=== PATIENT | male | born 1940 | race Hispanic/Latino ===

== ENCOUNTER 2017-06-27 09:00 | Inpatient (IN) | payer OTHER ==
[~2017-06-27] VITALS: Ht 167.6 cm; Wt 83.8 kg
[~2017-06-27 09:00] MED LIST: ASPI-1181 PO; ATOR40TA71 PO; CARV6.25 PO; ENAL20TA PO; METF500T6 PO; METO25TA6 PO; NITR.4P TD; TAMS-1 PO; TOLT4CAP PO; [UNRECOGNIZED DRUG - OTHER] OU
[2017-06-27 09:29] LABS: BASOPHILS % (AUTO) 0.5 % (0.0-5.0); EOSINOPHILS % (AUTO) 2.8 % (0.0-8.0); HEMATOCRIT 37.7 % (42-54); LYMPHOCYTES % (AUTO) 12.9 % (21.0-51.0); MEAN CORPUSCULAR HEMOGLOBIN 30.7 pg (27.0-33.0); MEAN CORPUSCULAR HGB CONC 34.6 g/dL (32.0-36.0); MEAN CORPUSCULAR VOLUME 88.9 fL (79-99); MONOCYTES % (AUTO) 6.4 % (3.0-13.0); NEUTROPHILS % (AUTO) 77.4 % (40.0-77.0); PLATELET COUNT (AUTO) 177 K/uL (130-400); RED BLOOD CELL COUNT(AUTO) 4.24 MIL/uL (4.50-6.20); WHITE BLOOD COUNT (AUTO) 5.9 K/uL (4.8-10.8)
[2017-06-27 09:46] LABS: APPEARANCE,URINE Clear (CLEAR); BILIRUBIN,URINE Negative (NEGATIVE); COLOR,URINE Yellow (YELLOW); GLUCOSE, URINE (UA) Negative (NEGATIVE); KETONES,URINE Negative (NEGATIVE); LEUKOCYTE ESTERASE ,URINE Negative (NEGATIVE); NITRATE,URINE Negative (NEGATIVE); OCCULT BLOOD,URINE Negative (NEGATIVE); PROTEIN,URINE Negative (NEGATIVE)
[2017-06-27] MEDS ORDERED: ONDANSETRON HCL MDV 20ML 2 MG/ML VIAL ONE (10:17)
[2017-06-27] MEDS ORDERED: MORPHINE SULFATE 4 MG/1ML SYG ONE ×2 (10:17→12:26)
[2017-06-27 10:41] LABS: POTASSIUM 4.7 mmol/L (3.5-5.1)
[2017-06-27 10:47] LABS: ALBUMIN 3.3 g/dL (3.5-5.0); BILIRUBIN,TOTAL 0.8 mg/dL (0.2-1.0); TOTAL PROTEIN, SERUM 6.7 g/dL (6.0-8.3)
[2017-06-27] MEDS ORDERED: IOPAMIDOL-370 75 ML VIAL IV ONE (10:53)
[2017-06-27] MEDS ORDERED: METRONIDAZOLE 500MG/100ML BAG 100 ML ONE (12:26)
[2017-06-27] MEDS ORDERED: LEVOFLOXACIN 750 MG/D5W 150 ML 150 ML ONE (14:13)
[2017-06-27 20:00] VITALS: BP 131/57
[2017-06-28] VITALS (8 sets, daily range): BP systolic 124–159; BP diastolic 59–84
[2017-06-28] MEDS: SODIUM CHLORIDE 0.9% 1000ML 1,000 ML IV SCH ×2 (00:20→10:37)
[2017-06-28] MEDS ORDERED: GLUCAGON 1MG KIT 1 MG ML IM PRN (00:30)
[2017-06-28] MEDS ORDERED: HYDRALAZINE HCL 20 MG/ML VIAL IV PRN (00:30)
[2017-06-28] MEDS ORDERED: POTASSIUM CHLORIDE 20 MEQ ERTAB PO PRN (00:30)
[2017-06-28] MEDS ORDERED: POTASSIUM CHLORIDE 20MEQ/100ML 100 ML IV PRN (00:30)
[2017-06-28] MEDS ORDERED: LIDOCAINE HCL-MPF 1% 2ML VIAL IVP PRN (00:30)
[2017-06-28] MEDS ORDERED: DEXTROSE 50%-WATER 50 ML DISP.SYRIN IV PRN (00:30)
[2017-06-28] MEDS ORDERED: POTASSIUM CHLORIDE 10% ELIXIR 20 MEQ/15 ML UDCUP PO PRN (00:30)
[2017-06-28] MEDS ORDERED: ACETAMINOPHEN 325 MG TAB PO PRN ×2 (02:45)
[2017-06-28] MEDS ORDERED: MORPHINE SULFATE 2 MG/ML 1ML SYG IVP PRN (02:45)
[2017-06-28] MEDS ORDERED: CLONIDINE HCL 0.1 MG TABLET PO PRN (02:45)
[2017-06-28] MEDS ORDERED: ONDANSETRON HCL MDV 20ML 2 MG/ML VIAL IVP PRN (02:45)
[2017-06-28 05:39] LABS: BASOPHILS % (AUTO) 0.2 % (0.0-5.0); EOSINOPHILS % (AUTO) 1.1 % (0.0-8.0); HEMATOCRIT 34.4 % (42-54); LYMPHOCYTES % (AUTO) 12.7 % (21.0-51.0); MEAN CORPUSCULAR HEMOGLOBIN 31.8 pg (27.0-33.0); MEAN CORPUSCULAR HGB CONC 35.6 g/dL (32.0-36.0); MEAN CORPUSCULAR VOLUME 89.4 fL (79-99); MONOCYTES % (AUTO) 6.2 % (3.0-13.0); NEUTROPHILS % (AUTO) 79.8 % (40.0-77.0); PLATELET COUNT (AUTO) 156 K/uL (130-400); RED BLOOD CELL COUNT(AUTO) 3.85 MIL/uL (4.50-6.20); RED CELL DISTRIBUTION WIDTH 13.9 % (11.0-15.5); WHITE BLOOD COUNT (AUTO) 5.1 K/uL (4.8-10.8)
[2017-06-28 05:57] LABS: ALBUMIN 2.9 g/dL (3.5-5.0); BILIRUBIN,TOTAL 0.7 mg/dL (0.2-1.0); CREATININE 0.8 mg/dL (0.5-1.5); POTASSIUM 4.2 mmol/L (3.5-5.1); TOTAL PROTEIN, SERUM 6.1 g/dL (6.0-8.3)
[2017-06-28] MEDS: INSULIN HUMULIN R 100 UNIT/ML 3ML SQ SCH ×3 (05:58→21:00)
[2017-06-28] MEDS: METRONIDAZOLE 500MG/100ML BAG 100 ML IV SCH ×3 (05:58→20:33)
[2017-06-28] MEDS ORDERED: PANTOPRAZOLE 40 MG/VIAL IVP SCH ×2 (09:00→10:00)
[2017-06-28] MEDS ORDERED: LEVOFLOXACIN 500 MG/D5W 100 ML 100 ML IV SCH (14:00)
[2017-06-28] MEDS ORDERED: FAMO40TA7 PO (20:44)
[2017-06-28] MEDS ORDERED: OMEPRAZOL PO (20:44)
[2017-06-28] MEDS ORDERED: FAMOTIDINE/PF 20 MG/2 ML VIAL IV SCH (21:00)
[2017-06-29] MEDS: SODIUM CHLORIDE 0.9% 1000ML 1,000 ML IV SCH (04:16)
[2017-06-29] MEDS: METRONIDAZOLE 500MG/100ML BAG 100 ML IV SCH ×2 (04:16→11:21)
[2017-06-29 04:41] VITALS: BP 123/66
[2017-06-29 05:55] LABS: BASOPHILS % (AUTO) 0.3 % (0.0-5.0); EOSINOPHILS % (AUTO) 2.8 % (0.0-8.0); HEMATOCRIT 33.6 % (42-54); LYMPHOCYTES % (AUTO) 21.3 % (21.0-51.0); MEAN CORPUSCULAR HEMOGLOBIN 30.9 pg (27.0-33.0); MEAN CORPUSCULAR HGB CONC 34.6 g/dL (32.0-36.0); MEAN CORPUSCULAR VOLUME 89.3 fL (79-99); MONOCYTES % (AUTO) 8.9 % (3.0-13.0); NEUTROPHILS % (AUTO) 66.7 % (40.0-77.0); PLATELET COUNT (AUTO) 142 K/uL (130-400); RED BLOOD CELL COUNT(AUTO) 3.76 MIL/uL (4.50-6.20); RED CELL DISTRIBUTION WIDTH 13.8 % (11.0-15.5); WHITE BLOOD COUNT (AUTO) 4.2 K/uL (4.8-10.8)
[2017-06-29 05:57] LABS: CREATININE 0.8 mg/dL (0.5-1.5); POTASSIUM 4.1 mmol/L (3.5-5.1)
[2017-06-29] MEDS: INSULIN HUMULIN R 100 UNIT/ML 3ML SQ SCH ×2 (07:02→11:30)
[2017-06-29 07:54] VITALS: BP 132/85
[2017-06-29] MEDS ORDERED: METFORMIN HCL 500 MG TABLET PO SCH (08:00)
[2017-06-29 08:02] VITALS: BP 136/67
[2017-06-29] MEDS ORDERED: FAMOTIDINE/PF 20 MG/2 ML VIAL IV SCH (09:00)
[2017-06-29] MEDS ORDERED: TAMSULOSIN HCL 0.4 MG CAP.ER.24H PO SCH (09:00)
[2017-06-29] MEDS ORDERED: CARVEDILOL 6.25 MG TABLET PO SCH (09:00)
[2017-06-29] MEDS ORDERED: ENALAPRIL MALEATE 10 MG TABLET PO SCH (09:00)
[2017-06-29] MEDS ORDERED: PANTOPRAZOLE 40 MG/VIAL IVP SCH (09:00)
[2017-06-29] MEDS ORDERED: OXYBUTYNIN CHLORIDE 5 MG TABLET PO SCH (09:00)
[2017-06-29] MEDS ORDERED: ASPIRIN 81 MG EC TAB PO SCH (09:00)
[2017-06-29] MEDS ORDERED: LEVO500T2 PO (10:18)
[2017-06-29] MEDS ORDERED: METR500T PO (10:18)
[2017-06-29 11:27] VITALS: BP 142/72
[2017-06-29] MEDS ORDERED: OMEPRAZOL PO SCH (11:30)
[2017-06-29 16:19] VITALS: BP 141/64
[2017-06-29] MEDS ORDERED: ATORVASTATIN CALCIUM 40 MG TABLET PO SCH (21:00)
== END 2017-06-29 16:39 | disposition home or self-care (01) | DRG 391 ==
LOC: EDH 09:00 → OBSVTOIN 14:41 → EDHIP 14:41 → 4BH 06-28 00:52
PROVIDERS: ADMIT Family Medicine; ATTEND Family Medicine
DX: K57.32 Diverticulitis of large intestine without perforation or abscess without bleeding (principal); K85.90 Acute pancreatitis without necrosis or infection, unspecified; E11.9 Type 2 diabetes mellitus without complications; E78.5 Hyperlipidemia, unspecified; I25.10 Atherosclerotic heart disease of native coronary artery without angina pectoris; I10 Essential (primary) hypertension; Z87.891 Personal history of nicotine dependence; Z90.49 Acquired absence of other specified parts of digestive tract; Z95.1 Presence of aortocoronary bypass graft; Z88.8 Allergy status to other drugs, medicaments and biological substances
CPT/HCPCS: 36415; 74177; 80048; 80053; 81003; 82150; 82550; 82948; 83690; 84478; 84484; 85025; 93005; C9113; G0378; J1956; J2270; J3490; J7030; Q9967

== ENCOUNTER 2017-07-13 12:37 | Emergency (ER) | payer OTHER ==
[~2017-07-13 12:37] MED LIST changes: +FAMO40TA7 PO; +LEVO500T2 PO; -METO25TA6 PO; +METR500T PO; -NITR.4P TD; +OMEPRAZOL PO; -[UNRECOGNIZED DRUG - OTHER] OU
[2017-07-13 13:17] LABS: INR 1.02 (0.85-1.15); PROTHROMBIN TIME 10.7 SEC (9.6-11.6)
[2017-07-13 13:20] LABS: CREATININE 0.8 mg/dL (0.5-1.5)
[2017-07-13] MEDS ORDERED: METHYLPREDNISOLONE SOD SUCC 125MG/2ML VIAL ONE (13:24)
[2017-07-13] MEDS ORDERED: IPRATROPIUM/ALBUTEROL SULFATE 3 ML SOLUTION IH ONE ×2 (13:29→15:15)
[2017-07-13 13:35] LABS: ALBUMIN 3.6 g/dL (3.5-5.0); BILIRUBIN,TOTAL 0.7 mg/dL (0.2-1.0); CREATINE KINASE MB 0.9 ng/mL (0.5-3.6); TOTAL PROTEIN, SERUM 6.7 g/dL (6.0-8.3)
[2017-07-13 13:37] LABS: B-TYPE NATRIURETIC PEPTIDE 31 pg/mL (0-100)
[2017-07-13 13:41] LABS: BASOPHILS % (AUTO) 0.3 % (0.0-5.0); EOSINOPHILS % (AUTO) 2.7 % (0.0-8.0); HEMATOCRIT 39.7 % (42-54); LYMPHOCYTES % (AUTO) 7.8 % (21.0-51.0); MEAN CORPUSCULAR HEMOGLOBIN 31.2 pg (27.0-33.0); MONOCYTES % (AUTO) 7.9 % (3.0-13.0); NEUTROPHILS % (AUTO) 81.3 % (40.0-77.0); PLATELET COUNT (AUTO) 211 K/uL (130-400); RED BLOOD CELL COUNT(AUTO) 4.46 MIL/uL (4.50-6.20); RED CELL DISTRIBUTION WIDTH 13.8 % (11.0-15.5); WHITE BLOOD COUNT (AUTO) 6.8 K/uL (4.8-10.8)
== END 2017-07-13 16:22 | disposition home or self-care (01) ==
LOC: EDH 12:37
DX: J20.9 Acute bronchitis, unspecified (principal); E11.9 Type 2 diabetes mellitus without complications; I10 Essential (primary) hypertension; Z88.7 Allergy status to serum and vaccine
CPT/HCPCS: 36415; 71045; 80053; 82550; 82553; 83880; 84484; 85025; 85610; 85730; 93005; 94640 ×2; 96374; 99285; J2930

== ENCOUNTER 2018-08-03 05:54 | Day surgery (SDC) | payer OTHER ==
[2018-08-01 11:20] VITALS: BP 156/67
[2018-08-01 11:31] LABS: APPEARANCE,URINE Clear (CLEAR); BILIRUBIN,URINE Negative (NEGATIVE); COLOR,URINE Yellow (YELLOW); GLUCOSE, URINE (UA) Negative (NEGATIVE); KETONES,URINE Negative (NEGATIVE); LEUKOCYTE ESTERASE ,URINE Negative (NEGATIVE); NITRATE,URINE Negative (NEGATIVE); OCCULT BLOOD,URINE Negative (NEGATIVE); PH,URINE 7.5 (5.0-8.0); PROTEIN,URINE Negative (NEGATIVE)
[2018-08-01 11:32] LABS: BASOPHILS % (AUTO) 0.2 % (0.0-5.0); EOSINOPHILS % (AUTO) 2.9 % (0.0-8.0); HEMATOCRIT 38.6 % (42-54); MEAN CORPUSCULAR HEMOGLOBIN 31.5 pg (27.0-33.0); MEAN CORPUSCULAR HGB CONC 34.5 g/dL (32.0-36.0); MEAN CORPUSCULAR VOLUME 91.5 fL (79-99); MONOCYTES % (AUTO) 7.5 % (3.0-13.0); NEUTROPHILS % (AUTO) 70.4 % (40.0-77.0); PLATELET COUNT (AUTO) 161 K/uL (130-400); RED BLOOD CELL COUNT(AUTO) 4.22 MIL/uL (4.50-6.20); RED CELL DISTRIBUTION WIDTH 13.5 % (11.0-15.5); WHITE BLOOD COUNT (AUTO) 4.2 K/uL (4.8-10.8)
[2018-08-01 11:39] LABS: INR 1.02 (0.85-1.15); PARTIAL THROMBOPLASTIN TIME 30.3 SEC (26.3-35.5); PROTHROMBIN TIME 10.7 SEC (9.6-11.6)
[2018-08-01 11:40] LABS: CREATININE 0.9 mg/dL (0.5-1.5); POTASSIUM 4.6 mmol/L (3.5-5.1)
--- NOTE | 2018-08-02 10:40 | NUR ---
CALLED DEEPTHI GARCIA OF DR. MCADAMS TO NOTIFY ABNORMAL LAB, PER DEEPTHI I WAS TOLD TO CALL DR. MCADAMS TO REPORT ABNORMAL LABS. DR. MCADAMS PAGED, PENDING CALLBACK
--- NOTE | 2018-08-02 12:35 | NUR ---
REPORTED ABNORMAL LABS TO DR. MCADAMS WBC 4.2, RBC 4.22,HGB 13.3. PER DR. MCADAMS OK TO PROCEED NO NEW ORDERS.
[2018-08-03] VITALS (21 sets, daily range): BP systolic 100–146; BP diastolic 48–75
[~2018-08-03] VITALS: Ht 167.6 cm; Wt 83.8 kg
[~2018-08-03 05:54] MED LIST changes: -FAMO40TA7 PO; +FESO4TAB PO; -LEVO500T2 PO; +METF-444 PO; -METF500T6 PO; -METR500T PO; +OMEP40CA37 PO; -OMEPRAZOL PO; +SERT25TA5 PO; -TAMS-1 PO; -TOLT4CAP PO
[2018-08-03] MEDS ORDERED: SODIUM CHLORIDE 0.9% 1000ML 1,000 ML IV ONE (06:05)
[2018-08-03] MEDS ORDERED: NITROGLYCERIN 5 MG/ML 10 ML VIAL IV ONE (07:16)
[2018-08-03] MEDS ORDERED: LIDOCAINE HCL 2% 20ML ONE (07:16)
[2018-08-03] MEDS ORDERED: IOHEXOL-350 50ML VIAL IV ONE (07:16)
[2018-08-03] MEDS ORDERED: IOHEXOL 350 MG/ML 100ML INFUS..BTL IV ONE (07:16)
--- NOTE | 2018-08-03 07:19 | NUR ---
TO SERVICE SECRETARY GOKUL DÍAZ HERE TO TAKE PT TO SERVICE SECRETARY. PT STABLE.
[2018-08-03] MEDS ORDERED: SODIUM CHLORIDE 0.9% 1000ML 1,000 ML IV SCH (08:39)
[2018-08-03] MEDS ORDERED: GLUCAGON 1MG KIT 1 MG ML IM PRN (08:45)
[2018-08-03] MEDS ORDERED: DEXTROSE 50%-WATER 50 ML DISP.SYRIN IV PRN (08:45)
--- NOTE | 2018-08-03 08:53 | NUR ---
RECEIVE PT RECEIVED FROM HEMATOLOGIST VIA BED AWAKE ALERT ORIENTED 3X. STABLE. NO COMPLAINTS MADE. INSTRUCTED TO KEEP RIGHT LEF STRAIGHT DO NOT ELEVATE HEAD, VERBALIZED UNDERSTANDING. 6FR SHEATH RIGHT GROIN IN PLACE, NO OOZING NO HEMATOMA NOTED, DRESSING DRY AND INTACT.
[2018-08-03] MEDS ORDERED: **HM** TOVIAZ 4MG PO SCH (09:00)
[2018-08-03] MEDS ORDERED: ATORVASTATIN CALCIUM 40 MG TABLET PO SCH (09:00)
[2018-08-03] MEDS ORDERED: ASPIRIN 81 MG EC TAB PO SCH (09:00)
[2018-08-03] MEDS ORDERED: ENALAPRIL MALEATE 10 MG TABLET PO SCH (09:00)
[2018-08-03] MEDS ORDERED: CARVEDILOL 6.25 MG TABLET PO SCH (09:00)
[2018-08-03] MEDS ORDERED: SERTRALINE HCL 50 MG TABLET PO SCH (09:00)
[2018-08-03] MEDS ORDERED: PANTOPRAZOLE SODIUM 40 MG TABLET.DR PO SCH (09:00)
--- NOTE | 2018-08-03 15:05 | NUR ---
DISCHARGE PT DISCHARGED VIA WHEELCHAIR WITH . PT STABLE. NO COMPLAINTS MADE. CATH SITE REMAINS SOFT, DRESSING DRY AND INTACT, NO OOZING NO HEMATOMA NOTED. BMX1, VOIDED PRIOR TO DISCHARGE. DISCHARGE INSTRUCTIONS GIVEN TO AND PT, ALSO DEMONSTRATED TO ON HOW TO MONITOR SITE FOR BLEEDING, HEMATOMA, VERBALIZED UNDERSTANDING. PT/ INSTRUCTED TO RESUME METFORMIN TOMORROW PER DR. MCADAMS INSTRUCTIONS. VERBALIZED UNDERSTANDING. PT DID NOT TAKE NOON DOSE CARVEDILOL, WANTS TO TAKE AT HOME.
--- NOTE | 2018-08-03 18:00 | NUR ---
NOTE CALLED PT RE: MISSING SIGN SHEETS FOR DC INSTRUCTIONS, PT CONFIRMED THAT THEY HAD ACCIDENTALLY BROUGHT HOME DISCHARGE INSTRUCTIONS SIGNATURE SHEET FOR DAY PATIENT DISCHARGE INSTRUCTIONS IN [facility] AND [facility] DISCHARGE PACKET. PT AND HAD GIVEN INSTRUCTIONS EARLIER PRIOR TO DISCHARGE, BOTH VERBALIZED UNDERSTANDING.
== END 2018-08-03 15:05 | disposition home or self-care (01) ==
LOC: DAH 05:54
PROVIDERS: ATTEND Internal Medicine Cardiovascular Disease
DX: I25.798 Atherosclerosis of other coronary artery bypass graft(s) with other forms of angina pectoris (principal); Z68.30 Body mass index [BMI] 30.0-30.9, adult; Z79.899 Other long term (current) drug therapy; Z79.82 Long term (current) use of aspirin; Z79.84 Long term (current) use of oral hypoglycemic drugs; Z79.01 Long term (current) use of anticoagulants; I10 Essential (primary) hypertension; E78.5 Hyperlipidemia, unspecified; Z88.8 Allergy status to other drugs, medicaments and biological substances; I44.4 Left anterior fascicular block
CPT/HCPCS: 36415; 71045; 80048; 81003; 82948 ×2; 85025; 85610; 85730; 93005; 93459; A4606; C1769; C1894 ×2; J1644; J3490 ×2; J7030; Q9965 ×2; Q9967 ×2

== ENCOUNTER 2018-08-10 17:20 | Emergency (ER) | payer OTHER ==
[2018-08-10 18:52] LABS: BASOPHILS % (AUTO) 0.1 % (0.0-5.0); EOSINOPHILS % (AUTO) 2.5 % (0.0-8.0); HEMATOCRIT 33.7 % (42-54); LYMPHOCYTES % (AUTO) 15.5 % (21.0-51.0); MEAN CORPUSCULAR HEMOGLOBIN 32.1 pg (27.0-33.0); MEAN CORPUSCULAR VOLUME 91.6 fL (79-99); MONOCYTES % (AUTO) 7.6 % (3.0-13.0); NEUTROPHILS % (AUTO) 74.3 % (40.0-77.0); PLATELET COUNT (AUTO) 150 K/uL (130-400); RED BLOOD CELL COUNT(AUTO) 3.68 MIL/uL (4.50-6.20); RED CELL DISTRIBUTION WIDTH 13.6 % (11.0-15.5); WHITE BLOOD COUNT (AUTO) 5.5 K/uL (4.8-10.8)
[2018-08-10 19:00] LABS: CREATININE 0.9 mg/dL (0.5-1.5); POTASSIUM 4.7 mmol/L (3.5-5.1)
[2018-08-10 19:05] LABS: ALBUMIN 3.7 g/dL (3.5-5.0); BILIRUBIN,TOTAL 0.5 mg/dL (0.2-1.0); TOTAL PROTEIN, SERUM 6.3 g/dL (6.0-8.3)
[2018-08-10 19:13] LABS: INR 1.02 (0.85-1.15); PARTIAL THROMBOPLASTIN TIME 30.3 SEC (26.3-35.5); PROTHROMBIN TIME 10.7 SEC (9.6-11.6)
== END 2018-08-10 23:50 | disposition left against medical advice (07) ==
LOC: EDH 17:20
DX: K62.5 Hemorrhage of anus and rectum (principal); I10 Essential (primary) hypertension; E11.9 Type 2 diabetes mellitus without complications; Z87.891 Personal history of nicotine dependence
CPT/HCPCS: 36415; 80053; 82270; 85025; 85610; 85730

== ENCOUNTER → 2018-12-24 | Outpatient (CLI) | payer OTHER ==
[~2018-12-24] VITALS: Ht 166.4 cm; Wt 83.8 kg
[~2018-12-24] MED LIST changes: +ALBU90AE IH; +DOCU-275 PO; +ENAL5TAB PO; +FERR325T22 PO; +HYDR25SU11 PR; +ISOS30TA6 PO; +LEVO500T2 PO; +METR500T PO; +MIRA50TA PO; +OMEP40CA13 PO; -OMEP40CA37 PO; +PANT40TA PO; +RANO500T3 PO; +SODIUM CHLORIDE 0.9% 500ML 500 ML IV SCH
[2018-12-24 13:31] VITALS: BP 144/69
[2018-12-24 13:33] LABS: BASOPHILS % (AUTO) 0.2 % (0.0-5.0); EOSINOPHILS % (AUTO) 2.2 % (0.0-8.0); HEMATOCRIT 36.2 % (42-54); LYMPHOCYTES % (AUTO) 19.3 % (21.0-51.0); MEAN CORPUSCULAR HEMOGLOBIN 32.8 pg (27.0-33.0); MEAN CORPUSCULAR HGB CONC 34.7 g/dL (32.0-36.0); MEAN CORPUSCULAR VOLUME 94.7 fL (79-99); MONOCYTES % (AUTO) 8.3 % (3.0-13.0); PLATELET COUNT (AUTO) 178 K/uL (130-400); RED BLOOD CELL COUNT(AUTO) 3.82 MIL/uL (4.50-6.20); RED CELL DISTRIBUTION WIDTH 13.7 % (11.0-15.5); WHITE BLOOD COUNT (AUTO) 4.5 K/uL (4.8-10.8)
[2018-12-24 13:35] LABS: APPEARANCE,URINE Clear (CLEAR); BILIRUBIN,URINE Negative (NEGATIVE); COLOR,URINE Yellow (YELLOW); GLUCOSE, URINE (UA) Negative (NEGATIVE); KETONES,URINE Negative (NEGATIVE); LEUKOCYTE ESTERASE ,URINE Negative (NEGATIVE); NITRATE,URINE Negative (NEGATIVE); OCCULT BLOOD,URINE Negative (NEGATIVE); PROTEIN,URINE Negative (NEGATIVE)
[2018-12-24 13:47] LABS: PARTIAL THROMBOPLASTIN TIME 28.6 SEC (26.3-35.5); PROTHROMBIN TIME 10.5 SEC (9.6-11.6)
[2018-12-24 13:48] LABS: CREATININE 0.9 mg/dL (0.5-1.5); POTASSIUM 4.6 mmol/L (3.5-5.1)
[2018-12-24 14:31] VITALS: BP 144/62
== END ==
LOC: LAB 08:00 → EDSTATUS 12:30
PROVIDERS: ATTEND Internal Medicine Cardiovascular Disease
DX: Z01.818 Encounter for other preprocedural examination (principal); I25.119 Atherosclerotic heart disease of native coronary artery with unspecified angina pectoris; I10 Essential (primary) hypertension; F41.9 Anxiety disorder, unspecified; E78.5 Hyperlipidemia, unspecified; E78.2 Mixed hyperlipidemia; Z88.7 Allergy status to serum and vaccine; Z79.01 Long term (current) use of anticoagulants; Z79.84 Long term (current) use of oral hypoglycemic drugs; Z98.890 Other specified postprocedural states; Z90.49 Acquired absence of other specified parts of digestive tract; Z79.2 Long term (current) use of antibiotics; Z79.899 Other long term (current) drug therapy; Z82.49 Family history of ischemic heart disease and other diseases of the circulatory system; Z83.3 Family history of diabetes mellitus
CPT/HCPCS: 36415; 71045; 80048; 81003; 85025; 85610; 85730; 93005

== ENCOUNTER 2018-12-25 08:09 | Inpatient (IN) | payer OTHER ==
[~2018-12-25] VITALS: Ht 167.6 cm; Wt 82.0 kg
[~2018-12-25 08:09] MED LIST changes: -CARV6.25 PO; -DOCU-275 PO; -ENAL20TA PO; -FESO4TAB PO; -HYDR25SU11 PR; -LEVO500T2 PO; -METR500T PO; -PANT40TA PO; -SERT25TA5 PO; -SODIUM CHLORIDE 0.9% 500ML 500 ML IV SCH
[2018-12-25 08:55] LABS: BASOPHILS % (AUTO) 0.3 % (0.0-5.0); EOSINOPHILS % (AUTO) 2.8 % (0.0-8.0); HEMATOCRIT 37.1 % (42-54); LYMPHOCYTES % (AUTO) 23.6 % (21.0-51.0); MEAN CORPUSCULAR HEMOGLOBIN 32.6 pg (27.0-33.0); MEAN CORPUSCULAR HGB CONC 34.7 g/dL (32.0-36.0); MEAN CORPUSCULAR VOLUME 93.8 fL (79-99); MONOCYTES % (AUTO) 5.8 % (3.0-13.0); NEUTROPHILS % (AUTO) 67.5 % (40.0-77.0); PLATELET COUNT (AUTO) 155 K/uL (130-400); RED BLOOD CELL COUNT(AUTO) 3.96 MIL/uL (4.50-6.20); RED CELL DISTRIBUTION WIDTH 13.6 % (11.0-15.5); WHITE BLOOD COUNT (AUTO) 3.4 K/uL (4.8-10.8)
[2018-12-25 08:59] LABS: POTASSIUM 3.9 mmol/L (3.5-5.1)
[2018-12-25 09:09] LABS: ALBUMIN 3.6 g/dL (3.5-5.0); BILIRUBIN,TOTAL 0.6 mg/dL (0.2-1.0); TOTAL PROTEIN, SERUM 6.8 g/dL (6.0-8.3)
[2018-12-25 09:12] LABS: PARTIAL THROMBOPLASTIN TIME 28.2 SEC (26.3-35.5); PROTHROMBIN TIME 10.5 SEC (9.6-11.6)
[2018-12-25 09:18] LABS: APPEARANCE,URINE Clear (CLEAR); BILIRUBIN,URINE Negative (NEGATIVE); COLOR,URINE Yellow (YELLOW); GLUCOSE, URINE (UA) Negative (NEGATIVE); KETONES,URINE Negative (NEGATIVE); LEUKOCYTE ESTERASE ,URINE Trace (NEGATIVE); NITRATE,URINE Negative (NEGATIVE); OCCULT BLOOD,URINE Negative (NEGATIVE); PH,URINE 7.5 (5.0-8.0); PROTEIN,URINE Negative (NEGATIVE)
[2018-12-25 09:36] LABS: BACTERIA,URINE Few /HPF (None Seen); RBC,URINE 0-1 /HPF (0-1); WBC,URINE 0-1 /HPF (0-1)
[2018-12-25] MEDS ORDERED: LEVOFLOXACIN 500 MG/D5W 100 ML 100 ML ONE (11:05)
[2018-12-25] MEDS ORDERED: METRONIDAZOLE 500MG/100ML BAG 100 ML ONE (13:28)
[2018-12-25 13:43] LABS: HEMATOCRIT 34.7 % (42-54)
[2018-12-25] MEDS ORDERED: ACETAMINOPHEN 325 MG TAB PO PRN (16:00)
[2018-12-25] MEDS ORDERED: ONDANSETRON HCL 4 MG/2 ML VIAL IVP PRN (16:00)
[2018-12-25] MEDS ORDERED: MORPHINE SULFATE 4 MG/1ML SYG IV PRN (16:00)
[2018-12-25] MEDS ORDERED: MORPHINE SULFATE 2 MG/ML 1ML SYG IVP PRN (16:00)
[2018-12-25] MEDS ORDERED: SODIUM CHLORIDE 0.9% 1000ML 1,000 ML IV ONE (18:03)
[2018-12-25] MEDS ORDERED: METF-444 PO (21:27)
[2018-12-25] MEDS ORDERED: OMEP40CA13 PO (21:27)
[2018-12-25 22:11] LABS: HEMATOCRIT 37.1 % (42-54)
[2018-12-25 22:45] VITALS: BP 149/61
[2018-12-25] MEDS: FAMOTIDINE/PF 20 MG/2 ML VIAL IV SCH (23:00)
[2018-12-25] MEDS: METRONIDAZOLE 500MG/100ML BAG 100 ML IVPB SCH (23:00)
[2018-12-25] MEDS: SODIUM CHLORIDE 0.9% 1000ML 1,000 ML IV SCH (23:01)
[2018-12-26] VITALS (7 sets, daily range): BP systolic 119–158; BP diastolic 58–106
[2018-12-26 05:03] LABS: HEMATOCRIT 34.7 % (42-54); MEAN CORPUSCULAR HEMOGLOBIN 32.6 pg (27.0-33.0); MEAN CORPUSCULAR HGB CONC 34.4 g/dL (32.0-36.0); MEAN CORPUSCULAR VOLUME 94.7 fL (79-99); NUCLEATED RED BLOOD CELLS 0.2 % (0.0-0.19); PLATELET COUNT (AUTO) 152 K/uL (130-400); RED BLOOD CELL COUNT(AUTO) 3.66 MIL/uL (4.50-6.20); RED CELL DISTRIBUTION WIDTH 13.3 % (11.0-15.5); WHITE BLOOD COUNT (AUTO) 3.5 K/uL (4.8-10.8)
[2018-12-26 05:13] LABS: CREATININE 0.9 mg/dL (0.5-1.5); POTASSIUM 3.7 mmol/L (3.5-5.1)
[2018-12-26] MEDS: METRONIDAZOLE 500MG/100ML BAG 100 ML IVPB SCH ×3 (05:58→21:50)
[2018-12-26] MEDS: FAMOTIDINE/PF 20 MG/2 ML VIAL IV SCH ×2 (08:49→21:50)
[2018-12-26 10:19] LABS: HEMATOCRIT 36.6 % (42-54)
--- NOTE | 2018-12-26 11:48 | NUR ---
DCP CM met with pt discussed dc plans. Pt is independent prior to admission, lives at home with spouse. Denies any equipments/services. Pt feels safe to go back home, spouse and family able to assist with transportation and needs as necessary. DC plan to home once stable. CM to cont to follow up. Addendum: 12/26/18 at 1149 by RUPINDER BULLOCK LVN CM Amended: Links added.
[2018-12-26] MEDS: LEVOFLOXACIN 500 MG/D5W 100 ML 100 ML IV SCH (13:06)
[2018-12-26 16:16] LABS: HEMATOCRIT 36.5 % (42-54)
[2018-12-26] MEDS: SODIUM CHLORIDE 0.9% 1000ML 1,000 ML IV SCH (17:35)
[2018-12-27 03:43] VITALS: BP 128/55
[2018-12-27] MEDS: METRONIDAZOLE 500MG/100ML BAG 100 ML IVPB SCH ×3 (05:30→21:44)
[2018-12-27] MEDS: SODIUM CHLORIDE 0.9% 1000ML 1,000 ML IV SCH ×2 (05:31→13:05)
[2018-12-27 06:04] LABS: HEMATOCRIT 32.5 % (42-54); MEAN CORPUSCULAR HEMOGLOBIN 32.6 pg (27.0-33.0); MEAN CORPUSCULAR HGB CONC 34.9 g/dL (32.0-36.0); MEAN CORPUSCULAR VOLUME 93.4 fL (79-99); PLATELET COUNT (AUTO) 154 K/uL (130-400); RED BLOOD CELL COUNT(AUTO) 3.48 MIL/uL (4.50-6.20); RED CELL DISTRIBUTION WIDTH 13.3 % (11.0-15.5); WHITE BLOOD COUNT (AUTO) 3.8 K/uL (4.8-10.8)
[2018-12-27 06:21] LABS: CREATININE 1.1 mg/dL (0.5-1.5); POTASSIUM 3.3 mmol/L (3.5-5.1)
[2018-12-27 07:59] VITALS: BP 140/52
[2018-12-27] MEDS ORDERED: LIDOCAINE HCL-MPF 1% 2ML VIAL IV PRN (08:15)
[2018-12-27] MEDS ORDERED: POTASSIUM CHLORIDE 20MEQ/100ML 100 ML IV PRN ×2 (08:15)
[2018-12-27] MEDS ORDERED: POTASSIUM CHLORIDE 10% ELIXIR 20 MEQ/15 ML UDCUP PO PRN (08:15)
[2018-12-27] MEDS: FAMOTIDINE/PF 20 MG/2 ML VIAL IV SCH ×2 (08:35→21:43)
[2018-12-27] MEDS: POTASSIUM CHLORIDE 20 MEQ ERTAB PO PRN ×3 (08:36→12:50)
[2018-12-27] MEDS: DOCUSATE SODIUM 100 MG CAP PO SCH (08:37)
--- NOTE | 2018-12-27 09:39 | NUR ---
PATIENT HAD 2 EPISODES OF BRIGHT RED BLOODY STOOL. CALL WAS SENT TO THE ATTENDING GEAR SHAPER SET UP OPERATOR WHO ROUNDED EARLIER WITH NO CALL BACK. T/C WAS NOW PLACED TO DR BOURNE AND MESSAGE WAS LEFT WITH CE AT HIS OFFICE. PENDING CALL BACK FROM
[2018-12-27 12:00] VITALS: BP 124/57
[2018-12-27] MEDS: LACTULOSE 20 GM/30 ML UDCUP PO SCH ×2 (12:50→14:25)
[2018-12-27] MEDS: LEVOFLOXACIN 500 MG/D5W 100 ML 100 ML IV SCH (12:53)
[2018-12-27] MEDS ORDERED: LACTULOSE 20 GM/30 ML UDCUP PO SCH (14:00)
[2018-12-27] MEDS ORDERED: MAGNESIUM CITRATE 296 ML SOLUTION PO SCH (15:00)
[2018-12-27 16:00] VITALS: BP 127/66
[2018-12-27] MEDS ORDERED: PEG 3350/NA SULF,BICARB,CL/KCL 4000 ML SOLN PO SCH (16:00)
[2018-12-27 19:57] VITALS: BP 144/75
[2018-12-27 21:05] LABS: HEMATOCRIT 36.9 % (42-54); MEAN CORPUSCULAR HEMOGLOBIN 32.5 pg (27.0-33.0); MEAN CORPUSCULAR HGB CONC 34.3 g/dL (32.0-36.0); MEAN CORPUSCULAR VOLUME 94.9 fL (79-99); PLATELET COUNT (AUTO) 193 K/uL (130-400); RED BLOOD CELL COUNT(AUTO) 3.89 MIL/uL (4.50-6.20); RED CELL DISTRIBUTION WIDTH 13.9 % (11.0-15.5); WHITE BLOOD COUNT (AUTO) 4.2 K/uL (4.8-10.8)
[2018-12-27 23:36] VITALS: BP 129/76
[2018-12-28] VITALS (21 sets, daily range): BP systolic 113–158; BP diastolic 40–90
[2018-12-28 05:06] LABS: HEMATOCRIT 30.8 % (42-54); MEAN CORPUSCULAR HEMOGLOBIN 33.5 pg (27.0-33.0); MEAN CORPUSCULAR HGB CONC 35.4 g/dL (32.0-36.0); MEAN CORPUSCULAR VOLUME 94.8 fL (79-99); NUCLEATED RED BLOOD CELLS 0.2 % (0.0-0.19); PLATELET COUNT (AUTO) 130 K/uL (130-400); RED BLOOD CELL COUNT(AUTO) 3.25 MIL/uL (4.50-6.20); RED CELL DISTRIBUTION WIDTH 13.5 % (11.0-15.5); WHITE BLOOD COUNT (AUTO) 3.4 K/uL (4.8-10.8)
[2018-12-28 05:29] LABS: CREATININE 0.9 mg/dL (0.5-1.5); POTASSIUM 3.8 mmol/L (3.5-5.1)
[2018-12-28] MEDS: SODIUM CHLORIDE 0.9% 1000ML 1,000 ML IV SCH ×2 (05:29→21:27)
[2018-12-28] MEDS: METRONIDAZOLE 500MG/100ML BAG 100 ML IVPB SCH ×3 (05:30→21:25)
[2018-12-28] MEDS: FAMOTIDINE/PF 20 MG/2 ML VIAL IV SCH ×2 (08:52→21:26)
[2018-12-28] MEDS: DOCUSATE SODIUM 100 MG CAP PO SCH (08:52)
[2018-12-28] MEDS ORDERED: MIDAZOLAM HCL 1 MG/ML 2ML VIAL ONE ×2 (16:15→16:21)
[2018-12-28] MEDS ORDERED: FENTANYL CITRATE PF 50 MCG/1 ML 2ML VIAL ONE (16:21)
[2018-12-28] MEDS: LEVOFLOXACIN 500 MG/D5W 100 ML 100 ML IV SCH (17:30)
[2018-12-28 20:09] LABS: HEMATOCRIT 30.5 % (42-54)
[2018-12-28] MEDS: HYDROCORTISONE 25 MG SUPPOSITORY PR SCH (21:00)
[2018-12-28] MEDS ORDERED: HYDROCORTISONE 25 MG SUPPOSITORY PR SCH (21:00)
[2018-12-29 00:35] VITALS: BP 156/70
[2018-12-29 04:00] VITALS: BP 133/84
[2018-12-29 04:50] LABS: HEMATOCRIT 30.2 % (42-54); MEAN CORPUSCULAR HEMOGLOBIN 32.2 pg (27.0-33.0); MEAN CORPUSCULAR HGB CONC 34.3 g/dL (32.0-36.0); PLATELET COUNT (AUTO) 129 K/uL (130-400); RED BLOOD CELL COUNT(AUTO) 3.22 MIL/uL (4.50-6.20); RED CELL DISTRIBUTION WIDTH 13.3 % (11.0-15.5); WHITE BLOOD COUNT (AUTO) 4.4 K/uL (4.8-10.8)
[2018-12-29 05:02] LABS: CREATININE 0.8 mg/dL (0.5-1.5); POTASSIUM 3.4 mmol/L (3.5-5.1)
[2018-12-29] MEDS: METRONIDAZOLE 500MG/100ML BAG 100 ML IVPB SCH (05:49)
[2018-12-29] MEDS: POTASSIUM CHLORIDE 20 MEQ ERTAB PO PRN ×2 (06:06→09:22)
[2018-12-29 07:30] VITALS: BP 129/61
[2018-12-29] MEDS: FAMOTIDINE/PF 20 MG/2 ML VIAL IV SCH (09:00)
[2018-12-29] MEDS ORDERED: PANTOPRAZOLE SODIUM 40 MG TABLET.DR PO SCH (09:00)
[2018-12-29] MEDS: DOCUSATE SODIUM 100 MG CAP PO SCH (09:00)
[2018-12-29] MEDS: HYDROCORTISONE 25 MG SUPPOSITORY PR SCH (09:22)
[2018-12-29] MEDS ORDERED: DOCU-275 PO (09:31)
[2018-12-29] MEDS ORDERED: PANT40TA PO (09:31)
[2018-12-29] MEDS ORDERED: HYDR25SU11 PR (09:31)
[2018-12-29] MEDS ORDERED: METR500T PO (09:31)
[2018-12-29] MEDS ORDERED: LEVO500T2 PO (09:31)
--- NOTE | 2018-12-29 10:52 | NUR ---
NEW RX CALLED IN TO PT PHARMACY OF CHOICE: [facility] IN [place]. SPOKE WITH PHARMACIST MADISON. MEDS HAD TO BE CALLED IN BECAUSE DESPITE CORRECT INFO BEING UPDATED IN SYSTEM, E RX WAS BEING SENT TO PT'S OLD [facility] ([facility]).
--- NOTE | 2018-12-29 11:05 | NUR ---
DISCHARGE DISCHARGE INSTRUCTIONS GIVEN TO PATIENT AND HIS , BOTH VERBALIZED UNDERSTANDING. PATIENT WAS INSTRUCTED TO FOLLOW UP WITH PCP IN [address] BOURNE IN 2 WEEKS. PRESCRIPTIONS WERE ELECTRONICALLY SENT TO [facility] PER PATIENT REQUEST. IV REMOVED. PATIENT TAKEN TO LOBBY VIA WHEELCHAIR.
== END 2018-12-29 11:00 | disposition home or self-care (01) | DRG 393 ==
LOC: EDH 08:09 → EDHIP 13:00 → OBSVTOIN 13:00 → 3AH 21:44
PROVIDERS: ADMIT Internal Medicine; ATTEND Internal Medicine
PROC: 0DJ08ZZ Inspection of Upper Intestinal Tract, Via Natural or Artificial Opening Endoscopic (ICD-10-PCS; principal; 2018-12-28)
PROC: 0DBP8ZZ Excision of Rectum, Via Natural or Artificial Opening Endoscopic (ICD-10-PCS; 2018-12-28)
DX: K62.1 Rectal polyp (principal); K57.31 Diverticulosis of large intestine without perforation or abscess with bleeding; K29.01 Acute gastritis with bleeding; D62 Acute posthemorrhagic anemia; K59.00 Constipation, unspecified; I25.10 Atherosclerotic heart disease of native coronary artery without angina pectoris; D72.819 Decreased white blood cell count, unspecified; E78.5 Hyperlipidemia, unspecified; E11.9 Type 2 diabetes mellitus without complications; F19.90 Other psychoactive substance use, unspecified, uncomplicated; I10 Essential (primary) hypertension; K21.9 Gastro-esophageal reflux disease without esophagitis; K21.0 Gastro-esophageal reflux disease with esophagitis; K29.00 Acute gastritis without bleeding; K64.1 Second degree hemorrhoids; K57.30 Diverticulosis of large intestine without perforation or abscess without bleeding; Z88.7 Allergy status to serum and vaccine; Z79.84 Long term (current) use of oral hypoglycemic drugs; Z95.1 Presence of aortocoronary bypass graft; Z83.3 Family history of diabetes mellitus
CPT/HCPCS: 36415; 43235; 45380; 71045; 74176; 80048; 80053; 81001; 82150; 82270; 82550; 82948; 83690; 84484; 85014; 85018; 85025; 85027; 85610; 85730; 86677; 86850; 86900; 86901; 88305; 93005; 99152; 99153; A4606; G0378; J1956; J2250; J3010; J3490; J7030

== ENCOUNTER 2019-12-27 10:42 | Observation (INO) | payer OTHER ==
[2019-12-25 12:19] LABS: BASOPHILS % (AUTO) 0.2 % (0.0-5.0); EOSINOPHILS % (AUTO) 1.6 % (0.0-8.0); LYMPHOCYTES % (AUTO) 17.3 % (21.0-51.0); MEAN CORPUSCULAR HEMOGLOBIN 29.7 pg (27.0-33.0); MEAN CORPUSCULAR HGB CONC 32.7 g/dL (32.0-36.0); MEAN CORPUSCULAR VOLUME 90.7 fL (79-99); MONOCYTES % (AUTO) 8.5 % (3.0-13.0); NEUTROPHILS % (AUTO) 72.2 % (40.0-77.0); PLATELET COUNT (AUTO) 176 K/uL (130-400); RED BLOOD CELL COUNT(AUTO) 4.08 MIL/uL (4.50-6.20); RED CELL DISTRIBUTION WIDTH 14.3 % (11.0-15.5); WHITE BLOOD COUNT (AUTO) 4.5 K/uL (4.8-10.8)
[2019-12-25 12:26] LABS: APPEARANCE,URINE Clear (CLEAR); BILIRUBIN,URINE Negative (NEGATIVE); COLOR,URINE Yellow (YELLOW); GLUCOSE, URINE (UA) Negative (NEGATIVE); KETONES,URINE Negative (NEGATIVE); LEUKOCYTE ESTERASE ,URINE Trace (NEGATIVE); NITRATE,URINE Negative (NEGATIVE); OCCULT BLOOD,URINE Negative (NEGATIVE); PH,URINE 6.5 (5.0-8.0); PROTEIN,URINE Negative (NEGATIVE)
[2019-12-25 12:51] LABS: INR 1.01 (0.85-1.15); PARTIAL THROMBOPLASTIN TIME 27.6 SEC (26.3-35.5); PROTHROMBIN TIME 10.9 SEC (9.6-11.6)
[2019-12-25 12:55] LABS: BACTERIA,URINE Rare /HPF (None Seen); RBC,URINE 0-1 /HPF (0-1); SQUAMOUS EPITHELIAL CELL,UR Rare /HPF (0-2); WBC,URINE 0-1 /HPF (0-1)
[2019-12-25 13:22] LABS: POTASSIUM 4.7 mmol/L (3.5-5.1)
[2019-12-26 09:49] VITALS: BP 148/63
[~2019-12-27] VITALS: Ht 167.6 cm; Wt 86.6 kg
[~2019-12-27 10:42] MED LIST changes: -ASPI-1181 PO; +ENAL20TA18 PO; -ENAL5TAB PO; -FERR325T22 PO; +ICOS1CAP PO; +LORA10TA7 PO; +SERT25TA5 PO; +SODIUM CHLORIDE 0.9% 500ML 500 ML IV SCH; +ellipta IH
[2019-12-27 11:00] VITALS: BP 123/56
[2019-12-27] MEDS ORDERED: SODIUM CHLORIDE 0.9% 1000ML 1,000 ML IV ONE (11:00)
[2019-12-27] MEDS ORDERED: HEPARIN SODIUM 1000UNIT/ML 10ML VIAL ONE (14:18)
[2019-12-27] MEDS ORDERED: NICARDIPINE HCL 25 MG/10 ML ML IV ONE (14:18)
[2019-12-27] MEDS ORDERED: IOHEXOL-350 50ML VIAL IV ONE (14:19)
[2019-12-27] MEDS ORDERED: LIDOCAINE HCL 2% 20ML ONE (14:19)
[2019-12-27] MEDS ORDERED: MIDAZOLAM HCL 1 MG/ML 2ML VIAL ONE (14:19)
[2019-12-27] MEDS ORDERED: IOHEXOL 350 MG/ML 100ML INFUS..BTL IV ONE ×2 (14:19→16:11)
[2019-12-27] MEDS ORDERED: FENTANYL CITRATE PF 50 MCG/1 ML 2ML VIAL ONE ×2 (14:19→16:18)
[2019-12-27] MEDS ORDERED: NITROGLYCERIN 2 MG/VIAL VIAL IV ONE (14:19)
[2019-12-27] MEDS ORDERED: SODIUM BICARB 50MEQ 50ML VIAL 50 ML ONE (14:33)
[2019-12-27] MEDS ORDERED: BIVALIRUDIN 250 MG/VIAL IV ONE (15:28)
[2019-12-27] MEDS ORDERED: PRASUGREL HCL 10 MG TABLET ONE (15:37)
[2019-12-27] MEDS ORDERED: ASPIRIN 325MG EC TAB 325 MG TABLET.DR PO ONE (16:40)
[2019-12-27] MEDS ORDERED: NON-FORMULARY MEDICATION 1 EACH (Albuterol Sulfate (Proair Respiclick) 2 PUFF) IH PRN (18:30)
[2019-12-27] MEDS ORDERED: SODIUM CHLORIDE 0.9% 1000ML 1,000 ML IV SCH (18:30)
[2019-12-27] MEDS ORDERED: ALBUTEROL SULFATE 0.083% 2.5 MG/3 ML INH IH PRN (18:45)
[2019-12-27] MEDS ORDERED: ATORVASTATIN CALCIUM 40 MG TABLET ONE (18:48)
[2019-12-27] MEDS: [UNRECOGNIZED DRUG - OTHER] PO SCH (19:36)
[2019-12-27 20:00] VITALS: BP 124/88
[2019-12-27] MEDS ORDERED: ATORVASTATIN CALCIUM 40 MG TABLET PO SCH (21:00)
[2019-12-27] MEDS ORDERED: NON-FORMULARY MEDICATION 1 EACH (Icosapent Ethyl (Vascepa) 1 GM) PO SCH (21:00)
[2019-12-28] VITALS: BP 122/63
[2019-12-28] MEDS ORDERED: SERTRALINE HCL 50 MG TABLET ONE (03:19)
[2019-12-28] MEDS: SERTRALINE HCL 50 MG TABLET PO SCH ×2 (03:21→07:44)
[2019-12-28 04:00] VITALS: BP 137/62
[2019-12-28 05:58] LABS: CREATININE 0.9 mg/dL (0.5-1.5); POTASSIUM 3.8 mmol/L (3.5-5.1)
[2019-12-28] MEDS: [UNRECOGNIZED DRUG - OTHER] PO SCH (07:45)
[2019-12-28 08:30] VITALS: BP 127/67
[2019-12-28] MEDS ORDERED: RANOLAZINE 500 MG TAB.SR.12H PO SCH (09:00)
[2019-12-28] MEDS ORDERED: MIRABEGRON 50MG PO SCH (09:00)
[2019-12-28] MEDS ORDERED: ELLIPTA IH SCH (09:00)
[2019-12-28] MEDS ORDERED: ASPIRIN 81MG TAB.CHEW PO SCH (09:00)
[2019-12-28] MEDS ORDERED: NON-FORMULARY MEDICATION 1 EACH (Enalapril Maleate 20 MG) PO SCH (09:00)
[2019-12-28] MEDS ORDERED: MIRABEGRON 50 MG PO SCH (09:00)
[2019-12-28] MEDS ORDERED: PANTOPRAZOLE SODIUM 40 MG TABLET.DR PO SCH (09:00)
[2019-12-28] MEDS ORDERED: ENALAPRIL MALEATE 10 MG TABLET PO SCH (09:00)
[2019-12-28] MEDS ORDERED: ISOSORBIDE MONO 30MG TAB SR PO SCH (09:00)
[2019-12-28] MEDS ORDERED: LORATADINE 10 MG TABLET PO SCH (09:00)
[2019-12-28] MEDS ORDERED: NON-FORMULARY MEDICATION 1 EACH (Sertraline HCl 25 MG) PO SCH (09:00)
[2019-12-28] MEDS ORDERED: NON-FORMULARY MEDICATION 1 EACH (Omeprazole 40 MG) PO SCH (09:00)
[2019-12-28 10:38] LABS: POTASSIUM 3.9 mmol/L (3.5-5.1)
[2019-12-28 12:55] VITALS: BP 129/59
[2019-12-28] MEDS ORDERED: PRAS10TA9 PO (13:19)
[2019-12-28] MEDS ORDERED: AEC81 PO (13:19)
== END 2019-12-28 14:25 | disposition home or self-care (01) ==
LOC: DAH 10:42 → 4DH 10:43
PROVIDERS: ADMIT Internal Medicine Cardiovascular Disease; ATTEND Internal Medicine Cardiovascular Disease
DX: I25.119 Atherosclerotic heart disease of native coronary artery with unspecified angina pectoris (principal); I10 Essential (primary) hypertension; E78.2 Mixed hyperlipidemia; E11.59 Type 2 diabetes mellitus with other circulatory complications
CPT/HCPCS: 36415 ×2; 71045; 80048 ×3; 81001; 82948 ×4; 84295; 85025; 85610; 85730; 93005; 93455; 94664; 96360; 96361 ×2; A4215; A4216; A4221; A4222; A4223 ×3; A4606; A4663; C1725 ×3; C1760; C1769 ×7; C1874 ×3; C1887 ×2; C1893; C1894 ×3; C9600 ×2; C9601; G0378 ×15; J0583; J1644 ×2; J3010; J3490 ×3; J7030; Q9965 ×2; Q9967 ×3; J2250

== ENCOUNTER → 2020-03-18 | Outpatient (CLI) | payer OTHER ==
[~2020-03-18] MED LIST changes: +AEC81 PO; +ALBUTEROL SULFATE 0.083% 2.5 MG/3 ML INH IH ONE; +PRAS10TA9 PO; -SODIUM CHLORIDE 0.9% 500ML 500 ML IV SCH
== END | disposition home or self-care (01) ==
LOC: RESP 09:52
PROVIDERS: ATTEND Internal Medicine Cardiovascular Disease
DX: J44.9 Chronic obstructive pulmonary disease, unspecified (principal); J98.4 Other disorders of lung; R06.00 Dyspnea, unspecified; I25.119 Atherosclerotic heart disease of native coronary artery with unspecified angina pectoris
CPT/HCPCS: 94060; 94727; 94729

== ENCOUNTER 2020-09-08 08:31 | Day surgery (SDC) | payer OTHER ==
[~2020-09-08] VITALS: Ht 167.6 cm; Wt 83.5 kg
[~2020-09-08 08:31] MED LIST changes: -ALBUTEROL SULFATE 0.083% 2.5 MG/3 ML INH IH ONE; -ISOS30TA6 PO; +ISOS30TA92 PO; +LOSA25TA41 PO; +NACL 0.9% 1000ML 1,000 ML IV ONE; -OMEP40CA13 PO; +OMEP40CA21 PO; +SENN8.6T32 PO; +SERT-438 PO; -SERT25TA5 PO
[2020-09-08 08:37] VITALS: BP 148/74
[2020-09-08] MEDS ORDERED: PROPOFOL 10 MG/ML 20ML VIAL IV ONE (10:29)
[2020-09-08 10:46] VITALS: BP 106/57
[2020-09-08 10:51] VITALS: BP 112/58
[2020-09-08 10:56] VITALS: BP 115/61
[2020-09-08 11:00] VITALS: BP 115/61
[2020-09-08 11:10] VITALS: BP 155/64
== END 2020-09-08 11:35 | disposition home or self-care (01) ==
LOC: ENDO 08:31 → DAH 08:31 → ENDO 11:35
PROVIDERS: ATTEND Internal Medicine Gastroenterology
DX: D50.9 Iron deficiency anemia, unspecified (principal); K63.5 Polyp of colon; K57.30 Diverticulosis of large intestine without perforation or abscess without bleeding; K64.1 Second degree hemorrhoids; Z86.010 Personal history of colon polyps; I10 Essential (primary) hypertension; E78.5 Hyperlipidemia, unspecified; E11.9 Type 2 diabetes mellitus without complications; F41.9 Anxiety disorder, unspecified; F32.9 Major depressive disorder, single episode, unspecified; I25.10 Atherosclerotic heart disease of native coronary artery without angina pectoris; Z98.84 Bariatric surgery status; Z98.890 Other specified postprocedural states
CPT/HCPCS: 45385; 82948; 87635; 93005; A4215 ×2; A4221; A4222; A4223; A4606; A4620; A4657; A4663; C9803; J2704; J7030

== ENCOUNTER → 2024-03-01 | Outpatient (CLI) | payer OTHER ==
[~2024-03-01] MED LIST changes: +ENAL-91 PO; -ENAL20TA18 PO; +IOHEXOL 350 MG/ML 100ML INFUS..BTL IV ONE; -NACL 0.9% 1000ML 1,000 ML IV ONE
--- NOTE | 2024-03-01 11:58 | HMCIMG ---
CT CARDIAC ANGIO W/CONT. CCTA REASON: Atherosclerotic heart disease of [place] coronary artery without angina pect COMPARISON: None TECHNIQUE: Images are obtained through the heart in the axial plane before and during bolus IV contrast infusion, 100 cc Omnipaque 350. 2-D and 3-D multiplanar reconstruction images were then performed. The injection had to be repeated once due to motion artifact on the first sequence, total contrast volume was 200 cc. FINDINGS: This dictation is for the noncardiac findings only. Cardiac and coronary artery findings are reported separately. Visualized portions of the lungs are clear. There is normal-appearing pulmonary interstitium. There is no hilar or mediastinal lymphadenopathy. Chest wall structures appear unremarkable. IMPRESSION: 1. Unremarkable noncardiac portions of CT cardiac angiography.
--- NOTE | 2024-03-07 18:43 | CARDIOLOGY ---
RAD REPORT: [facility] ANGIO RADIOLOGY REPORT: CORONARY CT ANGIOGRAPHY DATE: Mar 07, 2024 QUALITY: Excellent CLINICAL HISTORY AND INDICATION: [coronary artery bypass graft patency ] TECHNIQUE: After obtaining a preliminary supervisor coffee image, contrast imaging performed on an Aquillon [id number] scanner. A dedicated, limited window, coronary imaging protocol was used, with single breath-hold, retrospective ECG gating, and automated arrhythmia rejection. 100 cc of low osmolar contrast agent: Omnipaque 350 was delivered via a 18-gauge IV catheter in the right antecubital fossa, using a power injector and followed by 60 cc of normal saline bolus as a chaser. Collimated images were reformatted at 0.5 mm intervals, and sent to an offline independent workstation for interpretation, using 3D anatomic reconstructions: Curved multiplanar reconstructions, maximum intensity projections, and multiplan ar imaging. No metoprolol was administered prior to scanning due to low baseline heart rate. 0.8 mg SL nitroglycerin was given. CORONARY ARTERY DESCRIPTIONS: The coronary arteries arise in normal position. Left main coronary artery: Normal caliber vessel that bifurcates into the LAD and LCx. Diffusely calcified left main with <20% stenosis. Left anterior descending coronary artery: Normal caliber vessel and gives rise to diagonal and septal branches. The ostial/proximal LAD is heavily calcified and not able to see lumen to classify stenosis. The D1 is heavily calcified with 99% stenosis. Left circumflex coronary artery: Normal caliber, nondominant and gives rise to three OM branches. LCx is diffusely calcified. OVENS SUPERVISOR of distal LCx. Heavily calcified OM1 with 99% stenosis. Right coronary artery: Large, dominant vessel giving rise to the PL and PDA branches. OVENS SUPERVISOR mid to distal RCA. CORONARY ARTERY BYPASS GRAFT DESCRIPTIONS: Patent ESTRADA to LAD. Patent SVG to R PDA. Thoracic aorta: Normal diameter. Qing Alarcon MD Cardiovascular Disease [facility] QING ALARCON MD Mar 07, 2024 18:43
== END | disposition home or self-care (01) ==
LOC: RAH 07:41
PROVIDERS: ATTEND Internal Medicine Cardiovascular Disease
DX: I25.10 Atherosclerotic heart disease of native coronary artery without angina pectoris (principal); I10 Essential (primary) hypertension; Z95.1 Presence of aortocoronary bypass graft
CPT/HCPCS: 75574; Q9967

== ENCOUNTER → 2024-11-13 | Outpatient (CLI) | payer OTHER ==
[~2024-11-13] MED LIST changes: +ALBUTEROL 0.083% 2.5 MG/3 ML INH IH ONE; -IOHEXOL 350 MG/ML 100ML INFUS..BTL IV ONE
== END | disposition home or self-care (01) ==
LOC: RESP 14:37
PROVIDERS: ATTEND Internal Medicine Cardiovascular Disease
DX: R06.09 Other forms of dyspnea (principal)
CPT/HCPCS: 94060; 94727; 94729